=== PATIENT | female | born 1990 | race Caucasian/White ===

== ENCOUNTER 2023-07-18 11:50 | Emergency (ER) | payer OTHER, SELFPAY ==
--- NOTE | ~2023-07-18 | XR_ITS ---
EXAMINATION: XR CHEST CLINICAL INFORMATION: Cough COMPARISON: None available. TECHNIQUE: 2 views of the chest were obtained. FINDINGS: Lungs clear. No pleural effusions. Heart and pulmonary vessels are normal. XR/XR chest 2V IMPRESSION: No active disease.
[2023-07-18 12:13] VITALS: BP 127/60; PULSE 68; RESP 18; TEMP 36.8; O2SAT 100; BMI 33.7
--- NOTE | 2023-07-18 12:13 | ED_ITS ---
HPI - General Adult General Chief complaint: Upper Respiratory Symptoms Stated complaint: fever Time Seen by Provider: 07/18/23 12:49 Source: patient Mode of arrival: ambulatory Limitations: no limitations History of Present Illness ED Provider: GEORGE GRECO PA-C HPI narrative: 32-year-old Slovak-speaking female with no significant past medical history presents to the ED today for evaluation of sore throat, cough, myalgias, chills, nausea and vomiting times 24 hours. Cough is nonproductive of sputum. Denies known sick contacts. No [id number] medications prior to arrival. She has not had a documented temperature at home. Denies dysphagia, difficulty controlling secretions. Denies rashes. landing signal officer utilized throughout visit to communicate with patient. Related Data Previous Rx's ?Medication ?Instructions ?Recorded benzocaine 15 mg-menthol 2.6 mg 1 terrell mucous membrane Q2-4H PRN 07/18/23 lozenges (Cepacol Sore Throat sore throat #16 ea (benzocaine-menthol)) penicillin V potassium 500 mg 500 mg PO BID 10 days #20 tabs 07/18/23 tablet prednisone 20 mg tablet 20 mg PO DAILY 5 days #5 tabs 07/18/23 Allergies Allergy/AdvReac Type Severity Reaction Status Date / Time No Known Allergies Allergy Verified 07/18/23 12:18 Review of Systems Review of Systems: Constitutional: No fever, chills, fatigue, night sweats, weight changes ENT/Mouth: No ear pain, hearing loss, nasal congestion, sinus pain, rhinorrhea, +sore throat, +odynophagia, No dysphagia Eyes: No eye pain, swelling, redness, vision changes, discharge Cardio: No chest pain, palpitations, CABRERA, orthopnea, peripheral edema Pulm: No SOB, cough, sputum, wheezing, dyspnea, hemoptysis GI: No nausea, vomiting, hematemesis, abdominal pain, diarrhea, constipation, hematochezia, melena : No irregular bleeding, dysuria, frequency, urgency, hesitancy, hematuria, flank pain MSK: No back pain, neck pain, joint pain, myalgias Skin: No lesions, rashes Neuro: No weakness, numbness, paresthesias, LOC, dizziness, headache All other systems reviewed and are negative. [facility] Past Medical History Attestation statement: The following information was validated with the patient. Source: old records reviewed and nursing notes reviewed Social History Social History Advance Directives: No Do you have a plan to hurt others: No Plan Physical Exam ED Vital Signs: Vital Signs - 24 hr 07/18/23 12:13 Temperature 98.3 F Pulse Rate 68 Respiratory Rate 18 Blood Pressure 127/60 Pulse Oximetry 100 Oxygen Delivery Method Room Air BMI result Body Mass Index 33.7 Vital signs stable, afebrile Const General: cooperative, healthy appearing, comfortable, no acute distress, alert and awake Orientation/consciousness: patient oriented x3 Limitations: no limitations HENMT Other: + posterior oropharynx erythematous with minimal amount of tonsillar edema. No tonsillar exudates. Uvula midline. No peritonsillar masses. Showing secretions and speaking in full complete sentences. Head: Yes normal to inspection, Yes normocephalic and Yes atraumatic Ears: hearing grossly normal bilaterally, external ears normal, TM's normal bilaterally, EAC's normal, mastoids normal and no periauricular adenopathy General nose exam: Normal external nose present and No nasal discharge present Face and sinus: Yes normal facial exam and Yes sinuses nontender Eyes General: appearance normal, both eyes and all related structures Pupils: Equal, round and reactive pupils present Neck Other: + no cervical, submandibular or submental LAD. Neck: Yes normal visual inspection and Yes full ROM Resp Effort & Inspection: normal respiratory effort and able to speak in complete sentences Auscultation: clear to auscultation bilaterally Cardio Rate: regular rate Rhythm: regular rhythm GI Inspection: Yes normal to inspection Palpation (GI): Soft to palpation and nontender Skin General skin exam: no rashes or lesions noted Neuro General: patient oriented x3, gait normal and moves all extremities Cranial nerves: Yes Equal, round and reactive pupils present Extrem General: Yes normal to inspection Course Course Course Narrative: This is a Rapid Medical Examination (RME) performed by Sera Greco PA-C in triage. Full HPI, ROS, assessment and treatment plan per primary provider in the Main ED. 32 yo tuvaluan speaking female here for eval of sore throat, cough, myalgias, c hills, vomiting x24 hours. No otc meds at home. No sick contacts. Afebrile in the ED. bilateral EACs and TMs WNL. Posterior oropharynx erythematous, no tonsillar edema or tonsillar exudates. lungs cta b/l. Plan: viral and strep swabs, CXR Reevaluation(s) Reevaluation #1: 1350-- patient has tested negative for covid/flu/rsv. She has tested positive for strep throat. Beta HCG quant negative. Due to [facility] down times, there is currently a 7-12 hour wait for chest x-ray read. I discussed this with patient. I have extremely low suspicion for pneumonia or bronchitis. I will send her home with a script of prednisone. She states that she does not wish to wait her x-ray results. I informed her that I may be able to call her with her x-ray results for my shift is over or she can review these on her patient portal. She verbalizes understanding. Patient has remained stable throughout ED visit today. Discussed worrisome signs and symptoms and when to return to the ED. All questions answered at this time. Patient is agreeable with disposition and stable for discharge. Medical Decision Making Medical Decision Making [facility] Narrative: 32-year-old Slovak-speaking female with no significant past medical history presents to the ED today for evaluation of sore throat, cough, myalgias, chills, nausea and vomiting times 24 hours. Vital signs stable, afebrile. Patient is nontoxic appearing and in NAD. Posterior oropharynx erythematous with minimal amount of tonsillar edema. No tonsillar exudates. Uvula midline. No peritonsillar masses. Showing secretions and speaking in full complete sentences. Bilateral EACs and TMs WNL. No cervical lymphadenopathy. No anterior neck swelling. No rashes. Skin warm, dry, intact. Abdomen soft, nondistended, nontender. No rebound tenderness or guarding. No CVAT bilaterally. Differential diagnosis includes viral syndrome, strep throat, . Unlikely mono, DEAF INTERPRETER, retropharyngeal abscess, Thong's angina, epiglottitis, pneumonia, acute respiratory distress, airway compromise. Plan for viral and strep swabs, chest x-ray, test. Differential Diagnosis Differential Diagnoses: The differential diagnosis associated with the presentation includes as above. Admission/Observation Not indicated Lab Data [facility] Lab Attestation statement: I reviewed the patient's lab results. as above Labs: Lab Results 07/18/23 07/18/23 Range/Units 12:25 12:29 Beta HCG, Quant < 2 mIU/mL Influenza Type A (PCR) NEGATIVE (Negative) Influenza Type B (PCR) NEGATIVE (Negative) RSV RNA Qual (PCR) NEGATIVE (Negative) SARS-CoV-2 RNA (RT-PCR) NEGATIVE (Negative) S. pyogenes GrpA MAURY Positive A (Negative) External Record Review External record reviewed: Inpatient record Prescription Management I considered prescription management with: Antibiotic (Penicillin) Social Determinants Patient?s care significantly limited by Social Determinants of Health including: Other Social Determinant of Health Critical Care Time Critical Care Time Critical Care Time: No Discharge Plan Discharge Clinical Impression: Acute streptococcal pharyngitis Patient Disposition: Home, Self-Care Instructions: Strep Throat (ED) Additional Instructions: You were seen in the ED today for evaluation of sore throat. You tested negative for COVID, flu, RSV. You tested positive for strep throat. As discussed, you will be called with results from your chest xray. Penicillin is an antibiotic that has been sent to your pharmacy. Take this twice daily for the next 10 days to treat strep throat. Do not stop taking these antibiotics early or miss any doses as this may cause infection to return or worsen. Prednisone as a steroid that has been sent to your pharmacy to help with tonsillar swelling. Cepacol throat lozenges have been sent to your pharmacy to help with throat pain. You may also purchase [id number] chloraseptic spray to numb your throat. Take Tylenol and ibuprofen as needed for body aches or fevers. Make sure to change your toothbrush as this contains bacteria. Strep throat is contagious. If anyone else in your household is exhibiting symptoms, please advise them to come to the ED, urgent care, or to see their [facility] care provider. Follow up with your primary care provider as needed. Return to the emergency department if your symptoms persist or worsen despite treatment or if you have difficulty swallowing, opening your mouth, or develop a rash. In the case of emergency, call 911.? Prescriptions: New Cepacol Sore Throat (biju-men) 15-2.6 mg lozenge 1 terrell mucous membrane Q2-4H PRN (Reason: sore throat) Qty: 16 0RF penicillin V potassium 500 mg tablet 500 mg PO BID 10 Days Qty: 20 0RF prednisone 20 mg tablet 20 mg PO DAILY 5 Days Qty: 5 0RF Referrals: [facility] [place]Provider Group] [facility] [place] [facility] [Provider Group] [facility] [Provider Group] Stand Alone Forms: Work/School Release Discharge Date/Time: 07/18/23 14:21 Print Language: Slovak
[2023-07-18 12:45] LABS: IDNOW Serial# 58CA691E; Strep A Nucleic Acid Positive (Negative)
[2023-07-18 13:12] LABS: HCG Quantitative < 2 mIU/mL
[2023-07-18 13:44] LABS: Influenza A PCR NEGATIVE (Negative); Influenza B PCR NEGATIVE (Negative); Resp Syncy Virus RNA Qual PCR NEGATIVE (Negative); SARS COV2 PCR INHOUSE NEGATIVE (Negative)
== END 2023-07-18 14:21 | disposition home or self-care (01) ==
LOC: HO.ED 14:08
PROVIDERS: Physician Assistant Medical; Emergency Provider Emergency Medicine Emergency Medical Services
DX: J02.0 Streptococcal pharyngitis (principal); R50.9 Fever, unspecified; R05.9 Cough, unspecified; J02.9 Acute pharyngitis, unspecified; R11.2 Nausea with vomiting, unspecified; Z03.818 Encounter for observation for suspected exposure to other biological agents ruled out
CPT/HCPCS: 0241U; 36415; 71046; 84702; 87651; 99281; 99283